=== PATIENT | female | born 1985 | race Two or more races ===

== ENCOUNTER → 2017-03-31 | Outpatient (CLI) | payer OTHER ==
--- NOTE | 2017-03-31 16:49 | RAD ---
Clinical Indication: Small for dates Technique: Study is dated March 31, 2017. No comparison study is available. Transabdominal imaging was performed. Findings: There is a single intrauterine gestation in variable presentation. The placenta is fundal and anterior in location without evidence of placental previa. There is no evidence of placental previa. Cervix is long and closed. NOVA subjectively is within normal limits. Biometrical data is as follows: BPD = 3.17 cm, with a corresponding gestational age of 15 weeks 6 days. HC = 11.57 cm, with a corresponding gestational age of 15 weeks 5 days. AC = 10.08 cm, with a corresponding gestational age of 16 weeks 1 days. FL = 1.81 cm, with a corresponding gestational age of 15 weeks 3 days. Ratio of head circumference to abdominal circumference is 1.15. Cephalic index is 85 %. Overall, the estimated sonographic gestational age is 15 weeks 6 days for an estimated date of delivery of September 16, 2017, concordant with BOGDAN by LMP of September 22, 2017. Estimated weight is not calculated. A full survey was not performed, should be performed closer to 20 weeks. heart tones are 147 bpm IMPRESSION: Single intrauterine gestation with estimated sonographic gestational age of 15 weeks 6 days.
== END | disposition home or self-care (01) ==
LOC: US 15:59
PROVIDERS: ATTEND Family Medicine
DX: Z36.4 Encounter for antenatal screening for fetal growth retardation (principal); Z3A.15 15 weeks gestation of pregnancy
CPT/HCPCS: 76801

== ENCOUNTER → 2017-05-05 | Outpatient (CLI) | payer OTHER ==
--- NOTE | 2017-05-05 12:43 | RAD ---
Indication:, Choroid plexus cyst seen on outside study Technique: Grayscale, color Doppler and spectral waveform ultrasound images of the pelvis. Comparison: None Findings: The cervix measures 4.6 four-chamber heart noted. Cm and is within normal limits. Single intrauterine noted with breech position of the time of scanning. Cardiac activity demonstrated at the rate of 137 bpm. The head circumference measures 18.39 cm corresponding to gestation age of 20 weeks 5 days. Biparietal diameter measures 4.68 cm corresponding to gestational age of 20 weeks 1 day. Abdominal circumference measures 15.54 cm corresponding to gestational age of 20 weeks 5 days. Femoral length measures 3.4 cm corresponding to gestation age of 20 weeks 5 days. Placenta is posterior and fundal. Amniotic fluid index measures 12.2 cm. Three-vessel cord demonstrated. Bladder, stomach, kidneys, spine, lags, arms, feet, eyes are visualized. Estimated weight of 372 g. Gestation age 20 weeks 4 days. Estimated due date 09/18/2017. There is an anechoic cleft within the left aspect of the brain extending from the anterior to the posterior best seen on image 39 and 40. Impression: 1. Single intrauterine with estimated gestation age of 20 weeks 4 days. 2. 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 There is no midline shift. Comparison with outside imaging is strongly recommended. Short-term follow-up or dedicated MRI may be obtained for further clarification.
== END | disposition home or self-care (01) ==
LOC: US 08:53
PROVIDERS: ATTEND Family Medicine
DX: O99.352 Diseases of the nervous system complicating pregnancy, second trimester (principal); G93.0 Cerebral cysts; Z3A.20 20 weeks gestation of pregnancy
CPT/HCPCS: 76805